=== PATIENT | male | born 1970 | race Caucasian/White ===

== ENCOUNTER 2018-06-30 11:51 | Emergency (ER) | payer SELFPAY ==
[~2018-06-30] VITALS: Ht 182.9 cm; Wt 91.2 kg
[2018-06-30 12:00] VITALS: BP 137/87
[2018-06-30] MEDS ORDERED: DEXAMETHASONE 4 MG TABLET PO STA (12:32)
[2018-06-30] MEDS ORDERED: AMOX500T PO (12:32)
--- NOTE | 2018-06-30 12:32 | PHYS DOC ---
Adult General Chief Complaint Chief Complaint: SORE THROAT HPI HPI Patient is a 47 year old male who presents with sore throat, intermittent swelling history. Patient is also had hot and cold chills. Patient states that he is currently on HIV medications but has not been taking them because his insurance does not start until July 04. . Review of Systems Review of Systems Constitutional: Denies fever or chills [] Eyes: Denies change in visual acuity, redness, or eye pain [] HENT: Denies nasal congestion. sore throat [] Respiratory: Denies cough or shortness of breath [] Cardiovascular: No additional information not addressed in HPI [] GI: Denies abdominal pain. nausea, vomiting, denies bloody stools or diarrhea [] : Denies dysuria or hematuria [] Musculoskeletal: Denies back pain or joint pain [] Integument: Denies rash or skin lesions [] Neurologic: Denies headache, focal weakness or sensory changes [] Endocrine: Denies polyuria or polydipsia [] All other systems were reviewed and found to be within normal limits, except as documented in this note. Current Medications Current Medications Current Medications Medications (Trade) Dose Ordered Sig/Liana Start Time Stop Time Status Last Admin Dose Admin Dexamethasone (Decadron) 10 mg 1X STAT 06/30/18 12:32 06/30/18 12:42 DC 06/30/18 12:51 10 MG Allergies Allergies Allergies Coded Allergies Type Severity Reaction Last Updated Verified No Known Drug Allergies 06/30/18 No Physical Exam Physical Exam Constitutional: Well developed, well nourished, no acute distress, non-toxic appearance. [] HENT: Normocephalic, atraumatic, bilateral external ears normal, oropharynx moist, no oral exudates, nose normal. Throat is red and swollen tonsil with exudates,[] Eyes: PERRLA, EOMI, conjunctiva normal, no discharge. [] Neck: Normal range of motion, no tenderness, supple, no stridor. [] Cardiovascular:Heart rate regular rhythm, no murmur [] Lungs & Thorax: Bilateral breath sounds clear to auscultation [] Abdomen: Bowel sounds normal, soft, no tenderness, no masses, no pulsatile masses. [] Skin: Warm, dry, no erythema, no rash. [] Back: No tenderness, no CVA tenderness. [] Extremities: No tenderness, no cyanosis, no clubbing, ROM intact, no edema. [] Neurologic: Alert and oriented X 3, normal motor function, normal sensory function, no focal deficits noted. [] Psychologic: Affect normal, judgement normal, mood normal. [] Current Patient Data Vital Signs Vital Signs Date Time Temp Pulse Resp B/P (MAP) Pulse Ox O2 Delivery O2 Flow Rate FiO2 06/30/18 12:00 98.8 100 18 137/87 (104) 97 Room Air 98.8 Lab Values Laboratory Tests Test 06/30/18 12:30 Group A Streptococcus Rapid Positive (NEGATIVE) EKG EKG [] Radiology/Procedures Radiology/Procedures [] Course & Med Decision Making Course & Med Decision Making Patient is a 47 year old male who presents with sore throat, intermittent swelling history. Patient is also had hot and cold chills. Patient states that he is currently on HIV medications but has not been taking them because his insurance does not start until July 04. Patient's throat is reddened and tonsils are swollen with pus pockets. Afebrile in the ED. He is given a dose of Dexamethasone. Lungs are clear to auscultation all lobes. Bilateral tympanic membrane are pearly white. Mucus membranes moist. Skin is pink warm and dry. Speaks in clear full sentences. Rapid strep is positive. Patient will be given antibiotic and will need to follow-up with his primary care if not getting better. Patient should push fluids and use Ibuprofen for pain or fever. Dragon Disclaimer Dragon Disclaimer This electronic medical record was generated, in whole or in part, using a voice recognition dictation system. Departure Departure Impression: Primary Impression: Strep throat Disposition: HOME, SELF-CARE Condition: STABLE Patient Instructions: Strep Throat Additional Instructions: FOLLOW UP WITH A PRIMARY CARE OR RETURN HERE IF NOT GETTING BETTER. Scripts Amoxicillin (AMOXICILLIN) 500 Mg Tablet 1 TAB PO TID, #30 TAB Prov: TOAN MCDANIEL APRN 06/30/18 TOAN MCDANIEL APRN Jun 30, 2018 12:32
== END 2018-06-30 12:50 | disposition home or self-care (01) ==
LOC: ER 11:51
DX: J02.0 Streptococcal pharyngitis (principal); B95.0 Streptococcus, group A, as the cause of diseases classified elsewhere
CPT/HCPCS: 87880; 99283; J8540